=== PATIENT | male | born 1975 | race Caucasian/White ===

== ENCOUNTER 2017-02-28 15:06 | Emergency (ER) | payer MEDICAID ==
[2017-02-28] MEDS: TETRACAINE 0.5% 4 ML OPH BOTH EYES (22:08)
[2017-02-28] MEDS: FLUORESCEIN STRIP BOTH EYES (22:08)
== END 2017-02-28 22:30 | disposition home or self-care (01) ==
LOC: FTE 22:30
DX: T15.01XA Foreign body in cornea, right eye, initial encounter (principal); J45.909 Unspecified asthma, uncomplicated; W26.8XXA Contact with other sharp object(s), not elsewhere classified, initial encounter; Y92.9 Unspecified place or not applicable
CPT/HCPCS: 99283; Z7502

== ENCOUNTER 2017-06-08 11:23 | Emergency (ER) | payer SELFPAY, MEDICAID ==
[2017-06-08 13:20] LABS: URINE PH (Dip) POC 7.5 (5.0-8.5)
[2017-06-08 13:20] LABS: URINE BLOOD (Dip) POC Trace-intact (NEGATIVE); URINE GLUCOSE (Dip) POC Negative (NEGATIVE); URINE KETONES (Dip) POC Negative (NEGATIVE); URINE LEUKOCYTE EST (Dip) POC Negative (NEGATIVE); URINE NITRITE (Dip) POC Negative (NEGATIVE); URINE TOTAL PROTEIN POC Negative (NEGATIVE)
[2017-06-08] MEDS: KETOROLAC 30 MG INJ IM (14:31)
== END 2017-06-08 14:36 | disposition home or self-care (01) ==
LOC: FTE 14:36
DX: M79.604 Pain in right leg (principal); M79.605 Pain in left leg; J45.909 Unspecified asthma, uncomplicated
CPT/HCPCS: 81003; 96372; 99284-25